=== PATIENT | male | born 1985 | race Caucasian/White ===

== ENCOUNTER 2016-10-08 11:30 | Inpatient (IN) ==
--- NOTE | 2016-10-08 11:55 | Emergency Department Note ---
Disposition Clinical Impression: Depression Disposition: Admitted As Inpatient Condition: Good General Adult HPI - General Chief complaint: ED Psychiatric Symptoms Stated complaint: Anxiety getting worse Time Seen by Provider: 10/08/16 11:47 Source: patient Limitations: no limitations - History of Present Illness Pain Scale: 2 - Related Data Home Medications Medication Instructions Recorded Confirmed Citalopram [CeleXA] 20 mg PO DAILY 10/08/16 10/08/16 Allergies Allergy/AdvReac Type Severity Reaction Status Date / Time Penicillins [PCN] Allergy Anaphylaxis Verified 10/08/16 11:44 Past Medical History - Past Medical History Medical history: Reports: no medical history Psychiatric history: Reports: anxiety, depression - Social History Smoking Status: Never smoker Smokeless Tobacco Status: Yes Alcohol use: Reports: none Drug use: Reports: none Physical Exam - General Limitations: no limitations General appearance: alert, in no apparent distress Course Vital Signs Temperature 98.0 F 10/08/16 11:37 Pulse Rate 118 10/08/16 11:37 Respiratory Rate 18 10/08/16 11:37 Blood Pressure 146/84 10/08/16 11:37 O2 Sat by Pulse Oximetry 98 10/08/16 11:37 Temperature 98.0 F 10/08/16 11:37 Pulse Rate 94 10/08/16 14:08 Respiratory Rate 16 10/08/16 14:57 Blood Pressure 131/94 10/08/16 14:57 O2 Sat by Pulse Oximetry 98 10/08/16 11:37 Oxygen Delivery Oxygen Delivery Room Air Medical Decision Making - Lab Data Result diagrams: 10/08/16 12:07 10/08/16 12:07 Lab Results 10/08/16 10/08/16 10/08/16 Range/Units 11:50 11:50 12:07 WBC 5.6 (4.3-11.1) K/mcL RBC 4.96 (4.19-5.50) M/mcL Hgb 14.2 (12.9-16.9) g/dL Hct 39.9 (37.5-50.1) % MCV 80.4 L (83.0-100.0) fL MCH 28.6 (28.0-33.3) pg MCHC 35.6 H (31.6-35.5) g/dL RDW 12.1 (11.5-14.5) % Plt Count 273 (140-400) K/mcL MPV 9.0 L (9.4-12.4) fL Immature Gran % 0.9 (0-4) % Seg Neutrophils % 71.0 % Lymphocytes % 20.8 % Monocytes % 7.1 % Eosinophils % 0.0 % Basophils % 0.2 % Neutrophils # 4.0 (1.6-8.9) K/mcL Lymphocytes # 1.2 (0.6-4.6) K/mcL Monocytes # 0.4 (0.0-1.3) K/mcL Eosinophils # 0.0 (0.0-0.6) K/mcL Basophils # 0.0 (0.0-0.2) K/mcL Immature Plt Fraction 2.5 (1.1-6.1) % Sodium (136-145) mEq/L Potassium (3.5-4.5) mEq/L Chloride (98-109) mEq/L Carbon Dioxide (19-29) mEq/L BUN (8-26) mg/dL Creatinine (0.72-1.25) mg/dL Est GFR ( Amer) (> 60) Est GFR (Non-Af Amer) (> 60) BUN/Creatinine Ratio (6-26) Glucose (70-99) mg/dL Calculated Osmolality (280-300) Calcium (8.6-10.8) mg/dL Urine Color Yellow (Yellow) Urine Clarity Clear (Clear) Urine pH 7.0 (5.0-8.0) pH Units Ur Specific [place] 1.008 L (1.010-1.025) Urine Protein Negative (Neg-Trace) mg/dL Urine Glucose (UA) Normal (Normal) mg/dL Urine Ketones Negative (Negative) mg/dL Urine Blood Negative (Negative) Urine Nitrite Negative (Negative) Urine Bilirubin Negative (Negative) Urine Urobilinogen Normal (Normal) mg/dL Ur Leukocyte Esterase Negative (Negative) Salicylates (15-30) mg/dL Urine Opiates Screen Negative (Rhwkns=411) ng/mL Acetaminophen (10-30) mcg/mL Ur Barbiturates Screen Negative (Hhwnub=416) ng/mL Ur Phencyclidine Scrn Negative (Cutoff=25) ng/mL Ur Amphetamines Screen Negative (Ymnwob=0840) ng/mL U Benzodiazepines Scrn Negative (Wodcry=167) ng/mL Urine Cocaine Screen Negative (Cutoff= 300) ng/mL U Marijuana (THC) Screen Negative (Cutoff = 50) ng/mL Ethyl Alcohol (0-10) mg/dL 10/08/16 10/08/16 Range/Units 12:07 12:07 WBC (4.3-11.1) K/mcL RBC (4.19-5.50) M/mcL Hgb (12.9-16.9) g/dL Hct (37.5-50.1) % MCV (83.0-100.0) fL MCH (28.0-33.3) pg MCHC (31.6-35.5) g/dL RDW (11.5-14.5) % Plt Count (140-400) K/mcL MPV (9.4-12.4) fL Immature Gran % (0-4) % Seg Neutrophils % % Lymphocytes % % Monocytes % % Eosinophils % % Basophils % % Neutrophils # (1.6-8.9) K/mcL Lymphocytes # (0.6-4.6) K/mcL Monocytes # (0.0-1.3) K/mcL Eosinophils # (0.0-0.6) K/mcL Basophils # (0.0-0.2) K/mcL Immature Plt Fraction (1.1-6.1) % Sodium 141 (136-145) mEq/L Potassium 3.3 L (3.5-4.5) mEq/L Chloride 105 (98-109) mEq/L Carbon Dioxide 25 (19-29) mEq/L BUN 7 L (8-26) mg/dL Creatinine 0.77 (0.72-1.25) mg/dL Est GFR ( Amer) > 60 (> 60) Est GFR (Non-Af Amer) > 60 (> 60) BUN/Creatinine Ratio 9 (6-26) Glucose 111 H (70-99) mg/dL Calculated Osmolality 291 (280-300) Calcium 8.9 (8.6-10.8) mg/dL Urine Color (Yellow) Urine Clarity (Clear) Urine pH (5.0-8.0) pH Units Ur Specific [place] (1.010-1.025) Urine Protein (Neg-Trace) mg/dL Urine Glucose (UA) (Normal) mg/dL Urine Ketones (Negative) mg/dL Urine Blood (Negative) Urine Nitrite (Negative) Urine Bilirubin (Negative) Urine Urobilinogen (Normal) mg/dL Ur Leukocyte Esterase (Negative) Salicylates < 5.0 L (15-30) mg/dL Urine Opiates Screen (Ouppzs=011) ng/mL Acetaminophen < 1.0 L (10-30) mcg/mL Ur Barbiturates Screen (Nqqigs=064) ng/mL Ur Phencyclidine Scrn (Cutoff=25) ng/mL Ur Amphetamines Screen (Pbxzcd=8648) ng/mL U Benzodiazepines Scrn (Fgwkfy=828) ng/mL Urine Cocaine Screen (Cutoff= 300) ng/mL U Marijuana (THC) Screen (Cutoff = 50) ng/mL Ethyl Alcohol < 10 (0-10) mg/dL Attestation Statement - Attestation Attestation: I examined this patient and my medical decision-making was reviewed with the ERECTING ENGINEER/PA/Advanced Practice Nurse/Resident Physician. I agree with the documented findings, disposition and treatment plan as described except to the extent set forth below. [id number] time provided Patient presents feeling anxious and with vague suicidality. he appears in no acute distress on exam. Medical clearance labs ordered
[2016-10-08 11:57] LABS: Bilirubin,Urine Negative (Negative); Blood,Urine Negative (Negative); Clarity,Urine Clear (Clear); Color,Urine Yellow (Yellow); Glucose,Urine (UA) Normal (Normal); Ketones,Urine Negative (Negative); Leukocyte Esterase,Urine Negative (Negative); Nitrite,Urine Negative (Negative); Protein,Urine Negative (Neg-Trace); Specific Gravity,Urine 1.008 (1.010-1.025); Urobilinogen,Urine Normal (Normal)
--- NOTE | 2016-10-08 12:02 | Emergency Department Note ---
Disposition Clinical Impression: Depression Qualifiers: Depression Type: unspecified Qualified Code(s): F32.9 - Major depressive disorder, single episode, unspecified Disposition: Admitted As Inpatient Condition: Good Forms: ED Satisfaction Letter Time of Disposition: 14:38 Psych HPI - General Chief Complaint: ED Psychiatric Symptoms Stated Complaint: Anxiety getting worse Time Seen by Provider: 10/08/16 11:47 Source: patient, family Mode of arrival: ambulatory Limitations: no limitations Nursing Notes Reviewed: Yes Vital Signs Reviewed: Yes - History of Present Illness HPI Narrative: 31-year-old male with history of depression and anxiety presents with 1-2 weeks of worsening depression, insomnia, loss of appetite, anxiety, and feelings of hopelessness. No clear suicidal thoughts, but does not not see any signs of Hope. He has history of suicide attempt about 12 years ago. He started Celexa last week without improvement. He was seen here for similar symptoms, given anxiety with improvement and sent home without medication. He does not have any other medical problems. He has no recent illness or injury. No hallucinations, confusion. He states that his depression and anxiety are worse due to a new job as well as difficulty with conceiving a child. No SOTO, fever, neck pain, CP/respiratory symptoms, abd pain or GI/ symptoms. Pt complaint: feels depressed, anxiety - Related Data Home Medications Medication Instructions Recorded Confirmed Citalopram [CeleXA] 20 mg PO DAILY 10/08/16 10/08/16 Allergies Allergy/AdvReac Type Severity Reaction Status Date / Time Penicillins [PCN] Allergy Anaphylaxis Verified 10/08/16 11:44 All systems ED: reviewed and negative except as stated. Past Medical History - Past Medical History Attestation: Yes The following information was validated with the patient. Source: patient Medical history: Reports: no medical history Psychiatric history: Reports: anxiety, depression - Social History Smoking Status: Never smoker Smokeless Tobacco Status: Yes Alcohol use: Reports: none Drug use: Reports: none Physical Exam - Head Head exam: atraumatic, normocephalic, normal inspection - Eye Eye exam: Present: normal appearance, PERRL, EOMI - ENT ENT exam: normal exam, normal oropharynx, mucous membranes moist - Neck Neck exam: Present: normal inspection, full ROM, trachea midline - Chest Chest inspection: Present: normal inspection, symmetric chest wall rise - Respiratory Respiratory exam: Clear to auscultation bilaterally without wheezes rales or rhonchi Cardiovascular Cardiovascular exam: Present: regular rate, normal rhythm, normal heart sounds - Abdominal Exam Abdominal exam: Present: soft, Non-Tender. Absent: tenderness, distention, guarding, rebound, rigidity - Extremities Exam Extremities exam: Present: normal inspection, full ROM - Expanded Lower Extremity Exam Hip/Pelvis exam: Present: normal inspection, full ROM - Back Exam Back exam: Present: normal inspection, full ROM. Absent: tenderness, CVA tenderness (R), CVA tenderness (L) - Neurological Exam Neurological exam: Present: alert, oriented X3, CN II-XII intact - Psychiatric Psychiatric exam: Present: normal affect, depressed mood - Skin Skin exam: Present: warm, dry, intact, normal color - General Limitations: no limitations General appearance: alert, in no apparent distress Course - Reevaluation(s) Reevaluation #1: Patient seen by psychiatric nurse in the emergency department. He checked in voluntarily to psychiatric unit with accepting physician Dr. Méndez. Time: 14:38 Vital Signs Temperature 98.0 F 10/08/16 11:37 Pulse Rate 118 10/08/16 11:37 Respiratory Rate 18 10/08/16 11:37 Blood Pressure 146/84 10/08/16 11:37 O2 Sat by Pulse Oximetry 98 10/08/16 11:37 Temperature 98.0 F 10/08/16 11:37 Pulse Rate 94 10/08/16 14:08 Respiratory Rate 16 10/08/16 14:08 Blood Pressure 125/92 10/08/16 14:08 O2 Sat by Pulse Oximetry 98 10/08/16 11:37 Oxygen Delivery Oxygen Delivery Room Air Psych - Lab Data Result diagrams: 10/08/16 12:07 10/08/16 12:07 Lab Results 10/08/16 10/08/16 10/08/16 Range/Units 11:50 11:50 12:07 WBC 5.6 (4.3-11.1) K/mcL RBC 4.96 (4.19-5.50) M/mcL Hgb 14.2 (12.9-16.9) g/dL Hct 39.9 (37.5-50.1) % MCV 80.4 L (83.0-100.0) fL MCH 28.6 (28.0-33.3) pg MCHC 35.6 H (31.6-35.5) g/dL RDW 12.1 (11.5-14.5) % Plt Count 273 (140-400) K/mcL MPV 9.0 L (9.4-12.4) fL Immature Gran % 0.9 (0-4) % Seg Neutrophils % 71.0 % Lymphocytes % 20.8 % Monocytes % 7.1 % Eosinophils % 0.0 % Basophils % 0.2 % Neutrophils # 4.0 (1.6-8.9) K/mcL Lymphocytes # 1.2 (0.6-4.6) K/mcL Monocytes # 0.4 (0.0-1.3) K/mcL Eosinophils # 0.0 (0.0-0.6) K/mcL Basophils # 0.0 (0.0-0.2) K/mcL Immature Plt Fraction 2.5 (1.1-6.1) % Sodium (136-145) mEq/L Potassium (3.5-4.5) mEq/L Chloride (98-109) mEq/L Carbon Dioxide (19-29) mEq/L BUN (8-26) mg/dL Creatinine (0.72-1.25) mg/dL Est GFR ( Amer) (> 60) Est GFR (Non-Af Amer) (> 60) BUN/Creatinine Ratio (6-26) Glucose (70-99) mg/dL Calculated Osmolality (280-300) Calcium (8.6-10.8) mg/dL Urine Color Yellow (Yellow) Urine Clarity Clear (Clear) Urine pH 7.0 (5.0-8.0) pH Units Ur Specific [place] 1.008 L (1.010-1.025) Urine Protein Negative (Neg-Trace) mg/dL Urine Glucose (UA) Normal (Normal) mg/dL Urine Ketones Negative (Negative) mg/dL Urine Blood Negative (Negative) Urine Nitrite Negative (Negative) Urine Bilirubin Negative (Negative) Urine Urobilinogen Normal (Normal) mg/dL Ur Leukocyte Esterase Negative (Negative) Salicylates (15-30) mg/dL Urine Opiates Screen Negative (Srefdl=005) ng/mL Acetaminophen (10-30) mcg/mL Ur Barbiturates Screen Negative (Upakef=710) ng/mL Ur Phencyclidine Scrn Negative (Cutoff=25) ng/mL Ur Amphetamines Screen Negative (Rrxrfn=6800) ng/mL U Benzodiazepines Scrn Negative (Chvpet=182) ng/mL Urine Cocaine Screen Negative (Cutoff= 300) ng/mL U Marijuana (THC) Screen Negative (Cutoff = 50) ng/mL Ethyl Alcohol (0-10) mg/dL 10/08/16 10/08/16 Range/Units 12:07 12:07 WBC (4.3-11.1) K/mcL RBC (4.19-5.50) M/mcL Hgb (12.9-16.9) g/dL Hct (37.5-50.1) % MCV (83.0-100.0) fL MCH (28.0-33.3) pg MCHC (31.6-35.5) g/dL RDW (11.5-14.5) % Plt Count (140-400) K/mcL MPV (9.4-12.4) fL Immature Gran % (0-4) % Seg Neutrophils % % Lymphocytes % % Monocytes % % Eosinophils % % Basophils % % Neutrophils # (1.6-8.9) K/mcL Lymphocytes # (0.6-4.6) K/mcL Monocytes # (0.0-1.3) K/mcL Eosinophils # (0.0-0.6) K/mcL Basophils # (0.0-0.2) K/mcL Immature Plt Fraction (1.1-6.1) % Sodium 141 (136-145) mEq/L Potassium 3.3 L (3.5-4.5) mEq/L Chloride 105 (98-109) mEq/L Carbon Dioxide 25 (19-29) mEq/L BUN 7 L (8-26) mg/dL Creatinine 0.77 (0.72-1.25) mg/dL Est GFR ( Amer) > 60 (> 60) Est GFR (Non-Af Amer) > 60 (> 60) BUN/Creatinine Ratio 9 (6-26) Glucose 111 H (70-99) mg/dL Calculated Osmolality 291 (280-300) Calcium 8.9 (8.6-10.8) mg/dL Urine Color (Yellow) Urine Clarity (Clear) Urine pH (5.0-8.0) pH Units Ur Specific [place] (1.010-1.025) Urine Protein (Neg-Trace) mg/dL Urine Glucose (UA) (Normal) mg/dL Urine Ketones (Negative) mg/dL Urine Blood (Negative) Urine Nitrite (Negative) Urine Bilirubin (Negative) Urine Urobilinogen (Normal) mg/dL Ur Leukocyte Esterase (Negative) Salicylates < 5.0 L (15-30) mg/dL Urine Opiates Screen (Gtkfbh=327) ng/mL Acetaminophen < 1.0 L (10-30) mcg/mL Ur Barbiturates Screen (Bbmjwh=026) ng/mL Ur Phencyclidine Scrn (Cutoff=25) ng/mL Ur Amphetamines Screen (Dgukmt=2083) ng/mL U Benzodiazepines Scrn (Dpcfop=140) ng/mL Urine Cocaine Screen (Cutoff= 300) ng/mL U Marijuana (THC) Screen (Cutoff = 50) ng/mL Ethyl Alcohol < 10 (0-10) mg/dL Psychiatric Medical Clearance - Medical Clearance Checklist Medical History: No Social History Section defined Current Vitals: Last Vital Signs Temp 98.0 F 10/08/16 11:37 Pulse 94 10/08/16 14:08 Resp 16 10/08/16 14:08 BP 125/92 10/08/16 14:08 Pulse Ox 98 10/08/16 11:37 Psychiatric Lab Panel: Drug Levels and Toxicity 10/08/16 10/08/16 10/08/16 11:50 12:07 12:07 Urine Opiates Screen Negative Acetaminophen < 1.0 L Ur Barbiturates Screen Negative Ur Phencyclidine Scrn Negative Ur Amphetamines Screen Negative U Benzodiazepines Scrn Negative Urine Cocaine Screen Negative U Marijuana (THC) Screen Negative Ethyl Alcohol < 10 Abnormal Labs: Abnormal lab results MCV 80.4 fL (83.0-100.0) L 10/08/16 12:07 MCHC 35.6 g/dL (31.6-35.5) H 10/08/16 12:07 MPV 9.0 fL (9.4-12.4) L 10/08/16 12:07 Potassium 3.3 mEq/L (3.5-4.5) L 10/08/16 12:07 BUN 7 mg/dL (8-26) L 10/08/16 12:07 Glucose 111 mg/dL (70-99) H 10/08/16 12:07 Ur Specific [place] 1.008 (1.010-1.025) L 10/08/16 11:50 Salicylates < 5.0 mg/dL (15-30) L 10/08/16 12:07 Acetaminophen < 1.0 mcg/mL (10-30) L 10/08/16 12:07 Statement of Medical Clearance: I have evaluated the patient, reviewed diagnostic information, and certify that the patient's medical condition is sufficiently stable that transfer to the psychiatric unit does not pose a significant risk of deterioration.
[2016-10-08 12:04] LABS: Amphetamine Screen,Urine Negative ng/mL (Cutoff=1000); Barbiturate Screen,Urine Negative ng/mL (Cutoff=200); Benzodiazepines Screen,Urine Negative ng/mL (Cutoff=200); Cannabinoid Screen,Urine Negative ng/mL (Cutoff = 50); Cocaine Screen,Urine Negative ng/mL (Cutoff= 300); Opiate Screen,Urine Negative ng/mL (Cutoff=300); Phencyclidine Screen,Urine Negative ng/mL (Cutoff=25)
[2016-10-08 12:13] LABS: Basophils % 0.2 %; Hematocrit 39.9 % (37.5-50.1); Hemoglobin 14.2 g/dL (12.9-16.9); Immature Granulocytes % 0.9 % (0-4); Immature Platelets 2.5 % (1.1-6.1); Lymphocytes # 1.2 K/mcL (0.6-4.6); Lymphocytes % 20.8 %; Mean Corpuscular HGB Conc 35.6 g/dL (31.6-35.5); Mean Corpuscular Hemoglobin 28.6 pg (28.0-33.3); Mean Corpuscular Volume 80.4 fL (83.0-100.0); Monocytes # 0.4 K/mcL (0.0-1.3); Monocytes % 7.1 %; Platelet Count 273 K/mcL (140-400); Red Blood Count 4.96 M/mcL (4.19-5.50); Red Cell Distribution Width 12.1 % (11.5-14.5)
[2016-10-08 12:24] LABS: BUN/Creatinine Ratio 9 (6-26); Blood Urea Nitrogen 7 mg/dL (8-26); Calcium 8.9 mg/dL (8.6-10.8); Carbon Dioxide 25 mEq/L (19-29); Chloride 105 mEq/L (98-109); Ethanol < 10 mg/dL (0-10); Glucose 111 mg/dL (70-99); Osmolality,Calculated 291 (280-300); Potassium 3.3 mEq/L (3.5-4.5); Sodium 141 mEq/L (136-145); eGFR For African Americans > 60 (> 60); eGFR For Non-African Americans > 60 (> 60)
[2016-10-08 12:26] LABS: Acetaminophen < 1.0 mcg/mL (10-30); Salicylate < 5.0 mg/dL (15-30)
[2016-10-08] MEDS ORDERED: Mag Hydrox/Al Hydrox/Simeth 30 ML UDC PO PRN (15:21)
[2016-10-08] MEDS ORDERED: *HR* LORazepam 2 MG/ML VIAL IM PRN (15:21)
[2016-10-08] MEDS ORDERED: Haloperidol Lactate 5 MG/ML VIAL IM PRN (15:21)
[2016-10-08] MEDS ORDERED: MOM Conc 10 ML UD.LIQ PO PRN (15:21)
[2016-10-08] MEDS ORDERED: Ibuprofen 400 MG TABLET PO PRN (15:21)
[2016-10-08] MEDS: hydrOXYzine pamoate 25 MG CAPSULE PO PRN (17:29)
[2016-10-08] MEDS: *HR* LORazepam 1 MG TABLET PO PRN (20:12)
[2016-10-08] MEDS: traZODone 50 MG TABLET PO PRN (20:12)
[2016-10-09] MEDS: *HR* LORazepam 1 MG TABLET PO PRN (07:34)
[2016-10-09] MEDS: Nicotine 2 MG GUM BC PRN (10:44)
--- NOTE | 2016-10-09 10:51 | Psychiatry History & Physical ---
Date of Encounter: 10/09/16 Time of Encounter: 09:20 History of Present Illness Patient Stated Chief Complaint: depressed,hopless Medicare Admission Attestation: For traditional Medicare patients the provided hospital inpatient services are reasonable and necessary and in the case of services not specified as inpatient -only under 42 CFR 419.22 (n), that they are appropriately provided as inpatient services in accordance 42 CFR 412.3. For Critical Access Hospital the patient may reasonably be expected to be discharged or transferred to a hospital within 96 hours after admission to the Critical Access Hospital. Admitted From: Emergency Dept History of Present Illness: Mr. Mccarty is a 31 year old male admitted from the emergency room for depression and suicidal ideation. Patient stated that he has been increasingly depressed over the last several months and unable to deal with stress in his life. He is stressed out by new promotion at work with more responsibility, also he and his were trying to have children and despite several treatments for fertility there are not successful so far. Patient has history of depression for most of his life in addition to positive family history of mental illness in his brother, mother, uncle and grandfather. He believed the door diagnosis of schizophrenia and bipolar disorder and his grandfather killed himself. Patient described poor sleep, depressed mood, crying episodes, low energy, no motivation and feeling of hopelessness and suicidal ideation. This is his first psychiatric admission. He had some outpatient treatments and took Celexa. Past Med Surg Social Fam HX - Past Medical History Medical history: no medical history - Past Psychiatric History Psychiatric history: Reports: anxiety, depression. Denies: previous psychiatric hospitalization Family psychiatric history: Yes Family Psychiatric History Details: Mother with depression, brother bipolar, grandfather with schizophrenia and killed himself. One uncle with schizophrenia Family History of Suicide: Completed - Past Surgical History Surgical History: no surgical history - Social History Smoking Status: Never smoker Smokeless Tobacco Status: Yes Alcohol use: none Drug use: none Medications & Allergies Citalopram [CeleXA] 20 mg PO DAILY 10/08/16 [History] Allergies Penicillins [PCN] Allergy (Verified 10/08/16 11:44) Anaphylaxis Review of Systems Psychiatric: Reports: depression, anxiety, abnormal sleep pattern, suicidal ideation, hopelessness Mental Status Exam Patient orientation: Yes Person, Yes Time, Yes Place Level of alertness: Alert Patient appearance: Appropriate, Well Groomed Behavior: calm, cooperative, anxious Psychomotor activity: Normal Eye contact: Maintains Eye Contact Mood description: Depressed, Anxious Affect description: congruent with mood, constricted, anxious Speech pattern: Normal rate, Normal rhythm, Normal tone, Appropriate Speech volume: Normal Thought process: Linear, Goal Oriented Thought content: Yes Suicidal ideation, No Homicidal ideation, No Overt delusions Perceptual disturbances: No Auditory hallucinations, No Visual hallucinations Attention span: Capable of Focused Attention Memory description: Grossly Intact Patient reliability: Reliable Historian Intelligence estimate: Average Judgment: Limited Insight: Partial Results - Vital Signs Vital signs: Temp Pulse Resp BP Pulse Ox 100 F H 83 16 128/79 98 10/09/16 08:53 10/09/16 08:53 10/09/16 08:53 10/09/16 08:53 10/08/16 11:37 - Labs Labs: Laboratory Last Values WBC 5.6 K/mcL (4.3-11.1) 10/08/16 12:07 RBC 4.96 M/mcL (4.19-5.50) 10/08/16 12:07 Hgb 14.2 g/dL (12.9-16.9) 10/08/16 12:07 Hct 39.9 % (37.5-50.1) 10/08/16 12:07 MCV 80.4 fL (83.0-100.0) L 10/08/16 12:07 MCH 28.6 pg (28.0-33.3) 10/08/16 12:07 MCHC 35.6 g/dL (31.6-35.5) H 10/08/16 12:07 RDW 12.1 % (11.5-14.5) 10/08/16 12:07 Plt Count 273 K/mcL (140-400) 10/08/16 12:07 MPV 9.0 fL (9.4-12.4) L 10/08/16 12:07 Immature Gran % 0.9 % (0-4) 10/08/16 12:07 Seg Neutrophils % 71.0 % 10/08/16 12:07 Lymphocytes % 20.8 % 10/08/16 12:07 Monocytes % 7.1 % 10/08/16 12:07 Eosinophils % 0.0 % 10/08/16 12:07 Basophils % 0.2 % 10/08/16 12:07 Neutrophils # 4.0 K/mcL (1.6-8.9) 10/08/16 12:07 Lymphocytes # 1.2 K/mcL (0.6-4.6) 10/08/16 12:07 Monocytes # 0.4 K/mcL (0.0-1.3) 10/08/16 12:07 Eosinophils # 0.0 K/mcL (0.0-0.6) 10/08/16 12:07 Basophils # 0.0 K/mcL (0.0-0.2) 10/08/16 12:07 Immature Plt Fraction 2.5 % (1.1-6.1) 10/08/16 12:07 Sodium 141 mEq/L (136-145) 10/08/16 12:07 Potassium 3.3 mEq/L (3.5-4.5) L 10/08/16 12:07 Chloride 105 mEq/L (98-109) 10/08/16 12:07 Carbon Dioxide 25 mEq/L (19-29) 10/08/16 12:07 BUN 7 mg/dL (8-26) L 10/08/16 12:07 Creatinine 0.77 mg/dL (0.72-1.25) 10/08/16 12:07 Est GFR ( Amer) > 60 (> 60) 10/08/16 12:07 Est GFR (Non-Af Amer) > 60 (> 60) 10/08/16 12:07 BUN/Creatinine Ratio 9 (6-26) 10/08/16 12:07 Glucose 111 mg/dL (70-99) H 10/08/16 12:07 Calculated Osmolality 291 (280-300) 10/08/16 12:07 Calcium 8.9 mg/dL (8.6-10.8) 10/08/16 12:07 Urine Color Yellow (Yellow) 10/08/16 11:50 Urine Clarity Clear (Clear) 10/08/16 11:50 Urine pH 7.0 pH Units (5.0-8.0) 10/08/16 11:50 Ur Specific [place] 1.008 (1.010-1.025) L 10/08/16 11:50 Urine Protein Negative mg/dL (Neg-Trace) 10/08/16 11:50 Urine Glucose (UA) Normal mg/dL (Normal) 10/08/16 11:50 Urine Ketones Negative mg/dL (Negative) 10/08/16 11:50 Urine Blood Negative (Negative) 10/08/16 11:50 Urine Nitrite Negative (Negative) 10/08/16 11:50 Urine Bilirubin Negative (Negative) 10/08/16 11:50 Urine Urobilinogen Normal mg/dL (Normal) 10/08/16 11:50 Ur Leukocyte Esterase Negative (Negative) 10/08/16 11:50 Salicylates < 5.0 mg/dL (15-30) L 10/08/16 12:07 Urine Opiates Screen Negative ng/mL (Mhvrpa=326) 10/08/16 11:50 Acetaminophen < 1.0 mcg/mL (10-30) L 10/08/16 12:07 Ur Barbiturates Screen Negative ng/mL (Popmzw=466) 10/08/16 11:50 Ur Phencyclidine Scrn Negative ng/mL (Cutoff=25) 10/08/16 11:50 Ur Amphetamines Screen Negative ng/mL (Ppnixe=2050) 10/08/16 11:50 U Benzodiazepines Scrn Negative ng/mL (Qedhbi=038) 10/08/16 11:50 Urine Cocaine Screen Negative ng/mL (Cutoff= 300) 10/08/16 11:50 U Marijuana (THC) Screen Negative ng/mL (Cutoff = 50) 10/08/16 11:50 Ethyl Alcohol < 10 mg/dL (0-10) 10/08/16 12:07 Assessment and Plan (1) Depression Current visit: Yes Status: Acute Plan: Admit inpatient for safety and stabilization, Close observation, Suicide Precautions per unit protocol, Encourage participation in unit milieu, Group Therapy, Monitor sleep, Monitor appetite Additional Plan: Will add Effexor XR 75 mg daily benefits and side effects were discussed patient is agreeable to try to and we will monitor his response. Risks, benefits, side effects, alternatives discussed w/pt: Yes Patient agreeable to treatment: Yes Qualifiers: Depression Type: major depressive disorder Major depression recurrence: recurrent Major depression episode severity: severe Psychotic features: without psychotic features Qualified Code(s): F33.2 - Major depressive disorder, recurrent severe without psychotic features
[2016-10-09] MEDS: Venlafaxine XR (24 HR) 75 MG CAP.ER.24H PO SCH (11:13)
[2016-10-09] MEDS: traZODone 50 MG TABLET PO PRN (21:09)
[2016-10-09] MEDS: hydrOXYzine pamoate 25 MG CAPSULE PO PRN (21:09)
[2016-10-10] MEDS: traZODone 50 MG TABLET PO PRN (00:23)
[2016-10-10] MEDS: *HR* LORazepam 1 MG TABLET PO PRN (03:09)
[2016-10-10] MEDS: Venlafaxine XR (24 HR) 75 MG CAP.ER.24H PO SCH (08:50)
[2016-10-10] MEDS: Nicotine 2 MG GUM BC PRN (12:47)
--- NOTE | 2016-10-10 18:01 | Psychiatry Progress Note ---
Date of Encounter: 10/10/16 Time of Encounter: 17:59 Subjective Interval history: Pt reports that he has been struggling with anxiety at night . He thinks effexor is helping in the morning but not at night. He has no past h/o suicide or past psych hospitalization. He had required ativan last night to get him to sleep. Review of Systems Psychiatric: Reports: depression, anxiety, abnormal sleep pattern, suicidal ideation Objective: Exam Patient orientation: Yes Person, Yes Time, Yes Place Level of alertness: Alert Patient appearance: Appropriate, Well Groomed Behavior: calm, cooperative, anxious Psychomotor activity: Normal Eye contact: Maintains Eye Contact Mood description: Depressed, Anxious Affect description: congruent with mood, constricted, anxious Speech pattern: Normal rate, Normal rhythm, Normal tone, Appropriate Speech volume: Normal Thought process: Linear, Goal Oriented Thought content: No Homicidal ideation, No Overt delusions Perceptual disturbances: No Auditory hallucinations, No Visual hallucinations Judgment: Fair Insight: Partial Results - Vital Signs Vital Signs: Temp Pulse Resp BP Pulse Ox 99.4 F 91 16 123/86 98 10/10/16 09:00 10/10/16 09:00 10/10/16 09:00 10/10/16 09:00 10/08/16 11:37 Assessment and Plan (1) Depression Current visit: Yes Status: Acute Plan: Continue hospitalization, Close observation, Encourage participation in unit milieu, Group Therapy, Monitor sleep, Monitor appetite Additional Plan: Will start Trileptal for depression and anxiety .. Risks, benefits, side effects, alternatives discussed w/pt: Yes Patient agreeable to treatment: Yes Qualifiers: Depression Type: major depressive disorder Major depression recurrence: recurrent Major depression episode severity: severe Psychotic features: without psychotic features Qualified Code(s): F33.2 - Major depressive disorder, recurrent severe without psychotic features Consult Discharge Plan - Plan Referrals: NO,PCP [Primary Care Provider] -
[2016-10-10] MEDS: OXcarbazepine 150 MG TABLET PO SCH (21:24)
[2016-10-11] MEDS: *HR* LORazepam 1 MG TABLET PO PRN (06:20)
[2016-10-11] MEDS: OXcarbazepine 150 MG TABLET PO SCH ×2 (09:27→22:01)
[2016-10-11] MEDS: Venlafaxine XR (24 HR) 75 MG CAP.ER.24H PO SCH (09:27)
[2016-10-11] MEDS: Nicotine 2 MG GUM BC PRN (10:26)
--- NOTE | 2016-10-11 18:27 | Psychiatry Progress Note ---
Date of Encounter: 10/11/16 Time of Encounter: 18:25 Subjective Interval history: Pt reports that he is feeling more hopeful . He tolerated the Trileptal well and feels it may be the right choice. He has good family support . His sleep was restless and he became anxious requiring Ativan. Review of Systems Psychiatric: Reports: depression, anxiety, abnormal sleep pattern, suicidal ideation Objective: Exam Patient orientation: Yes Person, Yes Time, Yes Place Level of alertness: Alert Patient appearance: Appropriate, Well Groomed Behavior: calm, cooperative, anxious Psychomotor activity: Normal Eye contact: Maintains Eye Contact Mood description: Depressed, Anxious Affect description: congruent with mood, constricted, anxious Speech pattern: Normal rate, Normal rhythm, Normal tone, Appropriate Speech volume: Normal Thought process: Linear, Goal Oriented Thought content: No Homicidal ideation, No Overt delusions Perceptual disturbances: No Auditory hallucinations, No Visual hallucinations Judgment: Fair Insight: Partial Results - Vital Signs Vital Signs: Temp Pulse Resp BP Pulse Ox 99 F 91 16 121/87 98 10/11/16 08:59 10/11/16 08:59 10/11/16 08:59 10/11/16 08:59 10/08/16 11:37 Assessment and Plan (1) Depression Current visit: Yes Status: Acute Plan: Continue hospitalization, Close observation, Encourage participation in unit milieu, Group Therapy, Monitor sleep, Monitor appetite Additional Plan: Increase Trileptal dosage. Risks, benefits, side effects, alternatives discussed w/pt: Yes Patient agreeable to treatment: Yes Qualifiers: Depression Type: major depressive disorder Major depression recurrence: recurrent Major depression episode severity: severe Psychotic features: without psychotic features Qualified Code(s): F33.2 - Major depressive disorder, recurrent severe without psychotic features Consult Discharge Plan - Plan Referrals: [facility] [Outside] - 11/07/16 2:00 pm (The above appointment is with Odessa Adame for counseling. Please bring your insurance card and photo ID to this appointment. Please arrive 10 minutes early for all appointments to complete the check-in process. This is Odessa's first new patient appointment. You may call the office regularly to check for cancellations that would allow you to be seen sooner. If you are unable to keep this appointment, 24 hour business notice of cancellation is expected. If you miss your new patient appointment, you cannot be re-scheduled in this practice. The [facility] is the [facility]st [facility] in [place], [place]. ) [facility] [Outside] - 11/29/16 1:00 pm (The above appointment is with Timothy Goff, psychiatric prescriber. You will receive a new patient packet in the mail. Please bring that completed packet to this appointment, along with your insurance card, photo ID and medication list. After you are seen by the prescriber, you will be referred to the counselor in the office. If you are unable to keep this appointment, 24 hour business notice of cancellation is expected. )
[2016-10-11] MEDS ORDERED: OXcarbazepine 150 MG TABLET PO SCH (21:00)
[2016-10-12] MEDS: OXcarbazepine 150 MG TABLET PO SCH ×2 (08:10→21:21)
[2016-10-12] MEDS: Nicotine 2 MG GUM BC PRN (09:35)
--- NOTE | 2016-10-12 15:40 | Psychiatry Progress Note ---
Date of Encounter: 10/12/16 Time of Encounter: 15:38 Subjective Interval history: Pt reports that he is more optimistic now. He had better sleep last night . No s /e to Trileptal and thinks its helping. No S/I, H/I Review of Systems Psychiatric: Reports: depression, anxiety Objective: Exam Patient orientation: Yes Person, Yes Time, Yes Place Level of alertness: Alert Patient appearance: Appropriate, Well Groomed Behavior: calm, cooperative, anxious Psychomotor activity: Normal Eye contact: Maintains Eye Contact Mood description: Depressed, Anxious Affect description: congruent with mood, anxious Speech pattern: Normal rate, Normal rhythm, Normal tone, Appropriate Speech volume: Normal Thought process: Linear, Goal Oriented Thought content: No Homicidal ideation, No Overt delusions Perceptual disturbances: No Auditory hallucinations, No Visual hallucinations Judgment: Fair Insight: Partial Results - Vital Signs Vital Signs: Temp Pulse Resp BP Pulse Ox 99.7 F H 84 16 124/87 98 10/12/16 08:38 10/12/16 08:38 10/12/16 08:38 10/12/16 08:38 10/08/16 11:37 Assessment and Plan (1) Depression Current visit: Yes Status: Acute Plan: Continue hospitalization, Close observation, Encourage participation in unit milieu, Group Therapy, Monitor sleep, Monitor appetite Additional Plan: Check Chem 7 Risks, benefits, side effects, alternatives discussed w/pt: Yes Patient agreeable to treatment: Yes Qualifiers: Depression Type: major depressive disorder Major depression recurrence: recurrent Major depression episode severity: severe Psychotic features: without psychotic features Qualified Code(s): F33.2 - Major depressive disorder, recurrent severe without psychotic features Consult Discharge Plan - Plan Referrals: [facility] [Outside] - 11/07/16 2:00 pm (The above appointment is with Odessa Adame for counseling. Please bring your insurance card and photo ID to this appointment. Please arrive 10 minutes early for all appointments to complete the check-in process. This is Odessa's first new patient appointment. You may call the office regularly to check for cancellations that would allow you to be seen sooner. If you are unable to keep this appointment, 24 hour business notice of cancellation is expected. If you miss your new patient appointment, you cannot be re-scheduled in this practice. The [facility] is the [facility] [place]. ) [facility] Counsel[facility] Psych Services [Outside] - 11/29/16 1:00 pm (The above appointment is with Timothy Goff, psychiatric prescriber. You will receive a new patient packet in the mail. Please bring that completed packet to this appointment, along with your insurance card, photo ID and medication list. After you are seen by the prescriber, you will be referred to the counselor in the office. If you are unable to keep this appointment, 24 hour business notice of cancellation is expected. )
[2016-10-12] MEDS: hydrOXYzine pamoate 25 MG CAPSULE PO PRN (17:13)
[2016-10-12 18:21] LABS: BUN/Creatinine Ratio 16 (6-26); Blood Urea Nitrogen 13 mg/dL (8-26); Calcium 8.8 mg/dL (8.6-10.8); Carbon Dioxide 28 mEq/L (19-29); Chloride 103 mEq/L (98-109); Glucose 103 mg/dL (70-99); Osmolality,Calculated 286 (280-300); Potassium 4.5 mEq/L (3.5-4.5); Sodium 138 mEq/L (136-145); eGFR For African Americans > 60 (> 60); eGFR For Non-African Americans > 60 (> 60)
[2016-10-13] MEDS: OXcarbazepine 150 MG TABLET PO SCH (08:12)
[2016-10-13 10:04] VITALS: BP 124/85
[2016-10-13] MEDS: Nicotine 2 MG GUM BC PRN (11:23)
--- NOTE | 2016-10-13 12:27 | Discharge Summary ---
Date of Encounter: 10/13/16 Time of Encounter: 12:15 Diagnosis - Discharge Diagnosis (1) Depression Status: Acute Qualifiers: Depression Type: major depressive disorder Major depression recurrence: recurrent Major depression episode severity: severe Psychotic features: without psychotic features Qualified Code(s): F33.2 - Major depressive disorder, recurrent severe without psychotic features Medications - Discharge Medications Prescriptions: Doxepin [Sinequan] 25 mg PO HS #30 capsule Oxcarbazepine [Trileptal] 450 mg PO BID #180 tablet Quetiapine Fumarate [Seroquel] 25 mg PO Q6H PRN #30 tablet PRN Reason: Anxiety Doxepin [Sinequan] 25 mg PO HS #30 capsule 10/13/16 [Rx] Oxcarbazepine [Trileptal] 450 mg PO BID #180 tablet 10/13/16 [Rx] Quetiapine Fumarate [Seroquel] 25 mg PO Q6H PRN #30 tablet 10/13/16 [Rx] Allergies Penicillins [PCN] Allergy (Verified 10/08/16 11:44) Anaphylaxis Results Procedures and tests throughout hospitalization: Completed Lab Orders Category Date Time Status Chem 7 [Basic Metabolic Panel] Routine Lab 10/12/16 16:26 Completed Provider Date of admission: 10/08/16 14:41 Primary care physician: PCP NO Consults: 10/08/16 15:47 Consult to Pastoral Services [CONS] Routine Comment: Discharging clinician: Larry Haines Assessment and Plan - Patient/Caregiver Discharge Instructions Diet: regular diet - Follow up Plan Follow up with: [facility] [Outside] - 11/07/16 2:00 pm (The above appointment is with Odessa Adame for counseling. Please bring your insurance card and photo ID to this appointment. Please arrive 10 minutes early for all appointments to complete the check-in process. This is Odessa's first new patient appointment. You may call the office regularly to check for cancellations that would allow you to be seen sooner. If you are unable to keep this appointment, 24 hour business notice of cancellation is expected. If you miss your new patient appointment, you cannot be re-scheduled in this practice. The [facility] is the [address] [place] [address] behind [facility] in [place], [place]. ) [facility] Counsel[facility] Psych Services [Outside] - 11/29/16 1:00 pm (The above appointment is with Timothy Goff, psychiatric prescriber. You will receive a new patient packet in the mail. Please bring that completed packet to this appointment, along with your insurance card, photo ID and medication list. After you are seen by the prescriber, you will be referred to the counselor in the office. If you are unable to keep this appointment, 24 hour business notice of cancellation is expected. ) Overall status at discharge: Stable Disposition: Home, Self-Care Hospital Course Hospital course: Mr. Mccarty is a 31 year old male with several months h/o escalating depression was hos[pitalized due to suicidality. He reported 2 significant stressors including a promotiion at work with increased responsibility and hopelessness with trying to have children with his . He had been on Celexa with minimal response. Pt was initially started on Effexor XR 75 mg for a couple of days. this was later changed to Trileptal to avoid sexual side effects. Pt had a good response to Trileptal. His Chem 7 did not show hypokalemia or hyponatremia from Trileptal. His anxiety also was stabilized with Trileptal. Celexa was discontinued on admission. Ptwas started on Doxepin 25 mg hs for sleep which was helpful in re establishing his sleep. Pt participated well in groups and received psychoeducation and 1:1 counseling. He also gained insight into his depression and substance abuse issues. His depression improved and he was interactive with peers and future oriented with resolution of suicidal thoughts. His follow up apptt with his psychiatrist was not available sooner than 6 weeks but he will be seeing the therapist within 2 weeks. Time spent discussing smoking cessation with patient: more than 10 minutes Does patient wish to continue nicotine replacement upon disc: No - Time Spent with Patient Total time spent providing and/or coordinating discharge services: Greater than 30 minutes Quality - Multiple Antipsychotics Patient discharged on 2 or more antipsychotic medications: No Procedures - Procedures Procedures: Crisis Stabilization, Supportive Therapy, Group Therapy, Psychoeducational Therapy Mental Status Exam - Mental Status Exam Patient orientation: Yes Person, Yes Time, Yes Place Level of alertness: Alert Patient appearance: Appropriate, Well Groomed Behavior: calm, cooperative, anxious Psychomotor activity: Normal Eye contact: Maintains Eye Contact Mood description: Euthymic/stable Affect description: congruent with mood, euthymic Speech pattern: Normal rate, Normal rhythm, Normal tone, Appropriate Speech Volume: Normal Thought process: Linear, Goal Oriented Thought Content: Yes Intact, No Suicidal ideation, No Homicidal ideation, No Overt delusions Perceptual Disturbances: No Auditory hallucinations, No Visual hallucinations Judgment: Fair Insight: Partial
== END 2016-10-13 14:55 | disposition home or self-care (01) | DRG 885 ==
LOC: EMEROO 11:30 → 1ANU 14:41 → SUATTDRO 14:41 → 1ANU 14:48
PROVIDERS: ADMIT Psychiatry & Neurology Psychiatry; ATTEND Psychiatry & Neurology Psychiatry